=== PATIENT | female | born 1955 | race African-American/Black ===

== ENCOUNTER → 2017-01-19 | Outpatient (CLI) | payer MEDICAID ==
--- NOTE | 2017-01-19 10:58 | RADIOLOGY REPORT (SQ) ---
EXAM DESCRIPTION: ANKLE RIGHT COMPLETE COMPLETED DATE/TIME: 01/19/2017 10:44 am REASON FOR STUDY: PAIN IN RIGHT ANKLE AND JOINTS OF RIGHT FOOT M25.571 PAIN IN RIGHT ANKLE AND JOIN TS OF RIGHT FOOT COMPARISON: None. NUMBER OF VIEWS: Three views. TECHNIQUE: AP, lateral, and oblique radiographic images acquired of the right ankle. LIMITATIONS: None. FINDINGS: MINERALIZATION: Normal. BONES: No acute fracture or dislocation. No worrisome bone lesions. Benign calcifications/ossificat ion along the plantar soft tissues of the calcaneus with a moderate-sized plantar calcaneal spur. JOINTS: No tibiotalar joint effusion SOFT TISSUES: Diffuse lateral soft tissue swelling. No soft tissue gas or radiopaque foreign body OTHER: No other significant finding. IMPRESSION: Lateral soft tissue swelling Plantar calcaneal spur of a plantar soft tissue calcification/ossification TECHNICAL DOCUMENTATION: JOB ID: [id number] [employer]- All Rights Reserved
== END ==
LOC: OD 10:28
PROVIDERS: ATTEND Nurse Practitioner
DX: M25.571 Pain in right ankle and joints of right foot (principal)

== ENCOUNTER → 2017-04-19 | Outpatient (CLI) | payer MEDICAID ==
--- NOTE | 2017-04-19 12:26 | RADIOLOGY REPORT (SQ) ---
EXAM DESCRIPTION: CERV SP 4 OR 5 VIEWS COMPLETED DATE/TIME: 04/19/2017 11:14 am REASON FOR STUDY: SPONDYLOSIS WITHOUT MYELOPATHY OR RADICULOPATHY COMPARISON: Cervical spine films 01/21/2009 NUMBER OF VIEWS: AP and lateral and odontoid neutral views. Lateral flexion, lateral extension images Total five views TECHNIQUE: AP and lateral neutral, odontoid neutral films. Lateral flexion and extension images. LIMITATIONS: None. FINDINGS: MINERALIZATION: Normal. ALIGNMENT: Anatomic. FLEXION/EXTENSION: No instability. VERTEBRAE: Vertebral bodies of normal height. DISCS: There is disc space loss of height with mild anterior and posterior osteophyte formation at C5 -6, C6-7, C7-T1. LATERAL AND POSTERIOR ELEMENTS: Facets, lateral masses, and spinous processes without significant fin dings. Benign appearing less than 1 cm ossification in the nuchal ligament adjacent to the C7 spinou s process HARDWARE: None in the spine. SOFT TISSUES: No masses or calcifications. Lung apices clear. OTHER: No other significant finding. IMPRESSION: Multilevel degenerative disc changes. NO INSTABILITY ON FLEXION/EXTENSION. TECHNICAL DOCUMENTATION: JOB ID: [id number]- All Rights Reserved
== END ==
LOC: RAD 10:55
PROVIDERS: ATTEND Physician Assistant
DX: M47.812 Spondylosis without myelopathy or radiculopathy, cervical region (principal)
CPT/HCPCS: 72050